=== PATIENT | male | born 1935 | race Caucasian/White ===

== ENCOUNTER → 2019-06-25 | Outpatient (CLI) | payer MEDICARE, BC | LOC: COL.RAD 11:23 | DX: G70.00 Myasthenia gravis without (acute) exacerbation (principal) | CPT/HCPCS: Q9967 ==

== ENCOUNTER 2022-07-02 08:55 | Outpatient (CLI) | payer MEDICARE, BC ==
[2022-07-02] VITALS (9 sets, daily range): BP systolic 124–162; BP diastolic 78–94; PULSE 63–70; TEMP 98.8
--- NOTE | 2022-07-02 11:02 | NUR ---
Infusion finished.Will monitor for 1 hour post.
--- NOTE | 2022-07-02 12:29 | NUR ---
Pt escorted out via wheelchair by this nurse.
[2022-07-02] MEDS ORDERED: XARELTO20 MG PO (13:02)
[2022-07-02] MEDS ORDERED: TOPROL XL100 MG PO (13:03)
[2022-07-02] MEDS ORDERED: MAXZIDE-25MG TA1 TAB PO (13:05)
[2022-07-02] MEDS ORDERED: TAMBOCOR 1100 MG/TAB PO (13:06)
[2022-07-02] MEDS ORDERED: MESTINON 6060 MG/TAB PO (13:06)
[2022-07-02] MEDS ORDERED: IMURAN 50MG TAB50 MG PO (13:07)
[2022-07-02] MEDS ORDERED: COZAAR 50MG50 MG/TAB PO (13:09)
[2022-07-02] MEDS ORDERED: LIPITOR 80MG80 MG PO (13:10)
[2022-07-02] MEDS ORDERED: METAMUCIL3.4 GM/DOS PO (13:10)
[2022-07-02] MEDS ORDERED: IMODIUM A-D2 MG PO (13:11)
== END 2022-07-02 12:30 ==
LOC: EUO 08:55
DX: G47.00 Insomnia, unspecified (principal)
CPT/HCPCS: J9332

== ENCOUNTER 2022-07-09 09:00 | Outpatient (CLI) | payer MEDICARE, BC ==
[~2022-07-09] VITALS: Ht 195.6 cm; Wt 131.9 kg
[~2022-07-09 09:00] MED LIST: COZAAR 50MG50 MG/TAB PO; IMODIUM A-D2 MG PO; IMURAN 50MG TAB50 MG PO; LIPITOR 80MG80 MG PO; MAXZIDE-25MG TA1 TAB PO; MESTINON 6060 MG/TAB PO; METAMUCIL3.4 GM/DOS PO; TAMBOCOR 1100 MG/TAB PO; TOPROL XL100 MG PO; XARELTO20 MG PO
[2022-07-09 09:56] VITALS: BP 116/81; PULSE 69; TEMP 98.6
[2022-07-09 10:15] VITALS: BP 138/90; PULSE 70
[2022-07-09 10:30] VITALS: BP 138/90; PULSE 76
[2022-07-09 10:45] VITALS: BP 139/79; PULSE 64
[2022-07-09 11:00] VITALS: BP 139/107; PULSE 64
[2022-07-09 12:00] VITALS: BP 137/97; PULSE 72
== END 2022-07-09 12:15 | disposition home or self-care (01) ==
LOC: EUO 09:00
DX: G70.00 Myasthenia gravis without (acute) exacerbation (principal)
CPT/HCPCS: J9332

== ENCOUNTER 2022-07-16 08:58 | Outpatient (CLI) | payer MEDICARE, BC ==
[~2022-07-16] VITALS: Ht 195.6 cm; Wt 134.3 kg
[2022-07-16 09:17] VITALS: BP 137/80; PULSE 68; TEMP 98.6
[2022-07-16 10:00] VITALS: BP 143/70; PULSE 67
--- NOTE | 2022-07-16 10:00 | NUR ---
IV ANTIBIOTIC STARTED AT THIS TIME. VS 143/70 - P-67 R-18; 02 SATS 94%
[2022-07-16 11:51] VITALS: BP 149/89; PULSE 67; TEMP 98
--- NOTE | 2022-07-16 12:05 | NUR ---
Patient discharged to home at this time in care of . Patient denies any adverse reactions from medication. No new needs identified
== END 2022-07-16 12:45 ==
LOC: EUO 08:58
DX: G70.00 Myasthenia gravis without (acute) exacerbation (principal)
CPT/HCPCS: J9332

== ENCOUNTER 2022-07-23 09:25 | Outpatient (CLI) | payer MEDICARE, BC ==
[~2022-07-23] VITALS: Ht 195.6 cm; Wt 132.5 kg
[2022-07-23 09:39] VITALS: BP 115/90; PULSE 68; TEMP 99.2
[2022-07-23 10:55] VITALS: BP 143/78; PULSE 66
--- NOTE | 2022-07-23 12:00 | NUR ---
Pt assisted out to 's car by wheelchair. He tolerated infusion and 1 hr observation period without issue. IV site wrapped with coban.
== END 2022-07-23 12:00 | disposition home or self-care (01) ==
LOC: EUO 09:25
DX: G70.00 Myasthenia gravis without (acute) exacerbation (principal)
CPT/HCPCS: J9332

== ENCOUNTER 2022-10-17 15:00 | Outpatient (RCR) | payer MEDICARE, BC ==
[~2022-10-17 15:00] MED LIST changes: +AZATHIOPRINE100 MG PO; -IMURAN 50MG TAB50 MG PO
[2023-06-01] MEDS ORDERED: AZATHIOPRINE100 MG PO (19:17)
[2023-06-01] MEDS ORDERED: IMODIUM 2MG CAPS2 MG PO (19:17)
[2023-06-15] MEDS ORDERED: MILK OF MA400 MG/52 PO (23:34)
[2023-06-15] MEDS ORDERED: MYLANTA 150 ML150 M1 PO (23:34)
[2023-06-15] MEDS ORDERED: TYLENOL 325MG325 MG PO (23:35)
[2023-06-15] MEDS ORDERED: TYLENOL SU325 MG/SUP RC (23:36)
[2023-06-15] MEDS ORDERED: GENTLE LAXATIVE10 MG RC (23:36)
[2023-06-15] MEDS ORDERED: DEBROX OT (23:37)
[2023-06-19] MEDS ORDERED: CLEOCIN HCL300 MG PO (07:35)
[2023-08-27] MEDS ORDERED: TYLENOL SU650 MG/SUP RC (11:38)
[2023-08-27] MEDS ORDERED: MYLANTA COAT-C355 ML PO (11:40)
[2023-08-27] MEDS ORDERED: LIPITOR 80MG80 MG PO (11:41)
[2023-08-27] MEDS ORDERED: CLEOCIN HCL300 MG PO (11:41)
[2023-08-27] MEDS ORDERED: GENTLE LAXATIVE10 MG RC (11:41)
[2023-08-27] MEDS ORDERED: TAMBOCOR 1100 MG/TAB PO (11:42)
[2023-08-27] MEDS ORDERED: MUCINEX 60600 MG/TA1 PO (11:42)
[2023-08-27] MEDS ORDERED: IMODIUM 2MG CAPS2 MG PO (11:43)
[2023-08-27] MEDS ORDERED: COZAAR100 MG PO (11:43)
[2023-08-27] MEDS ORDERED: NORCO 325 MG-51 TAB PO (11:43)
[2023-08-27] MEDS ORDERED: GOOD NEIGH1200 MG/15 (11:44)
[2023-08-27] MEDS ORDERED: MELATIN 3 MG-11 TAB PO (11:44)
[2023-08-27] MEDS ORDERED: KAPSPARGO SPRI100 MG PO (11:45)
[2023-08-27] MEDS ORDERED: MESTINON 6060 MG/TAB PO (11:45)
[2023-08-27] MEDS ORDERED: XARELTO20 MG PO (11:46)
== END 2022-11-02 | disposition home or self-care (01) ==
LOC: WSPT
DX: G70.00 Myasthenia gravis without (acute) exacerbation (principal)

== ENCOUNTER → 2022-12-03 | Outpatient (RCR) | payer MEDICARE, BC ==
[~2022-12-03] MED LIST changes: -AZATHIOPRINE100 MG PO; +IMURAN 50MG TAB50 MG PO
== END | disposition home or self-care (01) ==
LOC: WSPT
DX: G47.00 Insomnia, unspecified (principal)

== ENCOUNTER 2022-12-30 11:01 | Outpatient (CLI) | payer MEDICARE, BC ==
[~2022-12-30] VITALS: Ht 195.6 cm; Wt 132.7 kg
[~2022-12-30 11:01] MED LIST changes: +AZATHIOPRINE100 MG PO; -IMURAN 50MG TAB50 MG PO
[2022-12-30 11:47] VITALS: BP 141/72; PULSE 72; TEMP 98
[2022-12-30] MEDS ORDERED: TAMBOCOR 1100 MG/TAB PO (12:13)
[2022-12-30 13:40] VITALS: BP 132/94; PULSE 59
--- NOTE | 2022-12-30 13:44 | NUR ---
Pt assisted out by wheelchair to daughter's car. He tolerated infusion without issue. Next appt dates/times given to daughter. IV site was wrapped with coban.
== END 2022-12-30 13:44 | disposition home or self-care (01) ==
LOC: EUO 11:01
DX: G70.00 Myasthenia gravis without (acute) exacerbation (principal)
CPT/HCPCS: J9332

== ENCOUNTER 2023-01-06 10:57 | Outpatient (CLI) | payer MEDICARE, BC ==
[~2023-01-06] VITALS: Ht 195.6 cm; Wt 132.8 kg
[2023-01-06 11:09] VITALS: BP 154/83; PULSE 64; TEMP 98.2
== END 2023-01-06 15:58 ==
LOC: EUO 10:57
DX: G70.00 Myasthenia gravis without (acute) exacerbation (principal)
CPT/HCPCS: J9332

== ENCOUNTER 2024-01-22 09:27 | Emergency (ER) | payer MEDICARE, BC ==
[~2024-01-22] VITALS: Ht 195.6 cm; Wt 136.4 kg
[~2024-01-22 09:27] MED LIST changes: +CLEOCIN HCL300 MG PO; +COZAAR100 MG PO; +DEBROX OT; +GENTLE LAXATIVE10 MG RC; +GOOD NEIGH1200 MG/15; +IMODIUM 2MG CAPS2 MG PO; +KAPSPARGO SPRI100 MG PO; +MELATIN 3 MG-11 TAB PO; +MILK OF MA400 MG/52 PO; +MUCINEX 60600 MG/TA1 PO; +MYLANTA 150 ML150 M1 PO; +MYLANTA COAT-C355 ML PO; +NORCO 325 MG-51 TAB PO; +TYLENOL 325MG325 MG PO; +TYLENOL SU325 MG/SUP RC; +TYLENOL SU650 MG/SUP RC
[2024-01-22 09:30] VITALS: TEMP 98.1
[2024-01-22] MEDS ORDERED: Acetaminophen 500 MG TAB PO ONE (10:15)
[2024-01-22 11:54] LABS: HEMATOCRIT 47.4 % (42.0-52.0); HEMOGLOBIN 15.5 g/dl (13.5-18.0); MEAN CELL VOLUME 94 fl (80.0-100.0); MEAN CORPUSCULAR HEMOGLOBIN 31 pg (27-31); MEAN CORPUSCULAR HGB CONC 33 g/dl (33.0-37.0); MEAN PLATELET VOLUME 9.4 fl (7.4-10.4); PLATELET COUNT 280 K/mm3 (130-400); RED BLOOD COUNT 5.07 M/mm3 (4.20-5.60); REDCELL DISTRIBUTION WIDTH-CV 15.4 % (11.5-14.5)
[2024-01-22 12:17] LABS: ALBUMIN 3.9 gm/dL (3.4-4.8); BILIRUBIN,TOTAL 2.2 mg/dL (0.2-1.2); CALCIUM 8.6 mg/dL (8.4-10.2); CREATININE, serum 0.81 mg/dL (0.72-1.25); POTASSIUM 4.3 mmol/L (3.5-4.5); TOTAL PROTEIN 7.3 gm/dL (6.2-8.1)
[2024-01-22 12:44] LABS: COLLECTION METHOD CLEAN CATCH
[2024-01-22 12:46] LABS: ANISOCYTOSIS 1+; EOSINOPHIL 2 % (0-4); HYPOCHROMIA 1+; LYMPHOCYTE 11 % (20.0-51.0); NEUTROPHILS 76 % (42.0-75.2); PLATELET ESTIMATE NORMAL (NORMAL)
[2024-01-22 13:51] LABS: PH 7.5 (5.0-8.5); URINE APPEARANCE CLEAR (CLEAR/HAZY); URINE BLOOD NEGATIVE (NEGATIVE); URINE COLOR YELLOW (YELLOW); URINE GLUCOSE NEGATIVE (NEGATIVE); URINE KETONE NEGATIVE (NEGATIVE); URINE NITRATE NEGATIVE (NEGATIVE); URINE PROTEIN(semi-quant) TRACE (NEGATIVE); URINE UROBILINOGEN 0.2 E.U/dL (0.2-1.0)
--- NOTE | 2024-01-22 14:08 | NUR ---
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 RADHA was informed by FARAZ Christensen that patient is not being admitted. He arrived with his and daughter who report they cannot take care of him. Pt is having increased weakness and pain, therefore cannot walk. RADHA advocated for PT to be ordered in the event they can briefly assess him. RADHA spoke with PT Nehemias who states pt is not safe to return home due to being a heavy max assist. He reports patient cannot ambulate. RADHA and RADHA Student met with pt and daughter, Selina to discuss options. SW discussed private pay for SNF/LTC due to not meeting inpatient criteria for admission. Daughter states they cannot afford to private pay. She states she spoke with Dr. Fox (Neurologist) who states pt is encouraged to be admitted due to a previosu diagnosis. RADHA explained the criteria for why pt is not admitted now. Selina discussed transferring to [facility] in [place] as she does not agree with the 's decision. She wondered if the RN/Dr will speak with Dr. Fox to discuss. RADHA stated she cannot guarantee anything, but she could ask the medical team. RADHA spoke with FARAZ Christensen and Dr. Caldwell who report pt continually does not meed inpatient admission criteria. Dr. Caldwell went into the room with RADHA and RADHA Student Myriam to further discuss. Dr. Caldwell stated their reasons for this determination. Daughter reports she would like to transfer to [facility] [place]. and RN aware of this. Selina was willing to take pt by private vehicle, with assistance loading. RADHA was informed would speak with Neurologist to discuss at this time. RADHA spoke with FARAZ Greenwood who advised pt will be transferred to [facility] in [place] at this time.
[2024-01-22] MEDS ORDERED: GEMTESA75 MG PO (14:39)
[2024-01-22 18:09] VITALS: BP 169/119; PULSE 85
== END 2024-01-22 18:25 | disposition short-term general hospital (02) ==
LOC: COL.ER 09:27
PROVIDERS: Emergency Medicine
DX: M25.461 Effusion, right knee (principal); G70.00 Myasthenia gravis without (acute) exacerbation; D72.829 Elevated white blood cell count, unspecified; W01.0XXA Fall on same level from slipping, tripping and stumbling without subsequent striking against object, initial encounter; Y92.410 Unspecified street and highway as the place of occurrence of the external cause

== ENCOUNTER 2024-03-03 09:57 | Outpatient (CLI) | payer MEDICARE, BC ==
[~2024-03-03] VITALS: Ht 195.6 cm; Wt 122.4 kg
[~2024-03-03 09:57] MED LIST changes: +GEMTESA75 MG PO
[2024-03-03] MEDS ORDERED: NS Flush 25 ML IV Bag IV ONE (10:15)
[2024-03-03] MEDS ORDERED: NS IV ONE (10:15)
[2024-03-03] MEDS ORDERED: EFGARTIGIMOD ALFA FCAB IV ONE (10:15)
[2024-03-03 10:23] VITALS: BP 95/60; PULSE 63; TEMP 99
[2024-03-03 11:40] VITALS: BP 122/72; PULSE 65
[2024-03-03 12:10] VITALS: BP 109/66; PULSE 63
[2024-03-03 12:40] VITALS: BP 127/93; PULSE 65
--- NOTE | 2024-03-03 12:51 | NUR ---
PT TOLERATED INFUSION WELL. VS REMAINED WITHIN NORMAL LIMITS AND PT WAS MONITORED FOR AN HOUR FOLLOWING THE INFUSION PER DR'S ORDERS. PT WAS ASSISTED TO MAIN LOBBY VIA WHEELCHAIR UPON DISCHARGE AND IV WAS DISCONTINUED.
== END 2024-03-03 12:52 | disposition home or self-care (01) ==
LOC: EUO 09:57
DX: G70.00 Myasthenia gravis without (acute) exacerbation (principal)
CPT/HCPCS: J9332

== ENCOUNTER 2024-05-12 13:33 | Outpatient (CLI) | payer MEDICARE, BC ==
[~2024-05-12] VITALS: Ht 195.6 cm; Wt 126.4 kg
[2024-05-12 14:02] VITALS: BP 120/68; PULSE 65; TEMP 97.7
[2024-05-12] MEDS ORDERED: NS Flush 25 ML IV Bag IV ONE (14:30)
[2024-05-12] MEDS ORDERED: NS IV ONE (14:30)
[2024-05-12] MEDS ORDERED: EFGARTIGIMOD ALFA FCAB IV ONE (14:30)
== END 2024-05-12 16:38 | disposition home or self-care (01) ==
LOC: EUO 13:33
DX: G70.00 Myasthenia gravis without (acute) exacerbation (principal)
CPT/HCPCS: J9332

== ENCOUNTER 2024-05-19 14:31 | Outpatient (CLI) | payer MEDICARE, BC ==
[~2024-05-19] VITALS: Ht 195.6 cm; Wt 126.1 kg
[2024-05-19 14:03] VITALS: BP 126/73; PULSE 64; TEMP 98.2
[~2024-05-19 14:31] MED LIST changes: +EFGARTIGIMOD ALFA FCAB IV ONE; +NS Flush 25 ML IV Bag IV ONE; +NS IV ONE
== END 2024-05-19 16:36 | disposition home or self-care (01) ==
LOC: EUO 14:31
DX: G70.00 Myasthenia gravis without (acute) exacerbation (principal)
CPT/HCPCS: J9332

== ENCOUNTER 2024-05-26 09:52 | Outpatient (CLI) | payer MEDICARE, BC ==
[~2024-05-26 09:52] MED LIST changes: -EFGARTIGIMOD ALFA FCAB IV ONE; -NS Flush 25 ML IV Bag IV ONE; -NS IV ONE
[2024-05-26] MEDS ORDERED: EFGARTIGIMOD ALFA FCAB IV ONE (10:15)
[2024-05-26] MEDS ORDERED: NS IV ONE (10:15)
--- NOTE | 2024-05-26 11:57 | NUR ---
PHARMACY CONTACTED THIS RN UPON PT'S ARRIVAL AND STATED THAT MEDICATION HAD NOT BEEN DELIVERED YET. PHARMACY WAS UNABLE TO FULFILL INFUSION BECAUSE OF MISSING MEDICATION SO PT WAS DISCHARGED AND IV WAS DISCONTINUED. PHARMACY WILL CONTACT [facility] ONCE MEDICATION HAS ARRIVED IN HOUSE.
[2024-05-27] MEDS ORDERED: NS IV ONE (11:15)
[2024-05-27] MEDS ORDERED: EFGARTIGIMOD ALFA FCAB IV ONE (11:15)
[2024-05-27 11:36] VITALS: BP 114/70; PULSE 67; TEMP 98.4
[2024-05-27] MEDS ORDERED: [UNRECOGNIZED DRUG - OTHER] IV (12:24)
[2024-05-27 12:40] VITALS: BP 130/73; PULSE 66
[2024-05-27 13:49] VITALS: BP 145/76; PULSE 66
--- NOTE | 2024-05-27 13:49 | NUR ---
Pt remained in dept for monitoring post infusion per orders. IV DC'd, site wrapped with coban. Pt assisted up from recliner to wheelchair. He exits dept in care of daughter. Free of complaints at discharge.
== END 2024-05-27 13:49 | disposition home or self-care (01) ==
LOC: EUO 09:52
DX: G70.00 Myasthenia gravis without (acute) exacerbation (principal)
CPT/HCPCS: J9332

== ENCOUNTER 2024-06-03 09:59 | Outpatient (CLI) | payer MEDICARE, BC ==
[~2024-06-03] VITALS: Ht 195.6 cm; Wt 126.7 kg
[~2024-06-03 09:59] MED LIST changes: +[UNRECOGNIZED DRUG - OTHER] IV
[2024-06-03 10:15] VITALS: BP 119/77; PULSE 70; TEMP 98.3
[2024-06-03] MEDS ORDERED: NS IV ONE (10:30)
[2024-06-03] MEDS ORDERED: EFGARTIGIMOD ALFA FCAB IV ONE (10:30)
--- NOTE | 2024-06-03 11:50 | NUR ---
Infusion completed. Pt tolerated without issue. Water provided, pt brought snacks. He denies further needs at this time. Will remain in dept for 1 hr montioring per orders.
[2024-06-03 12:40] VITALS: BP 117/78; PULSE 63
--- NOTE | 2024-06-03 12:50 | NUR ---
Pt tolerated infusion and 1 hr obs period without issue. He is assisted up to wheelchair, and pt's daughter returns to collect him. They exit dept together. Pt free of complaints at discharge.
== END 2024-06-03 12:50 | disposition home or self-care (01) ==
LOC: EUO 09:59
DX: G70.00 Myasthenia gravis without (acute) exacerbation (principal)
CPT/HCPCS: J9332